=== PATIENT | male | born 1995 | race African-American/Black ===

== ENCOUNTER 2018-01-27 17:21 | Emergency (ER) | payer OTHER ==
[~2018-01-27] VITALS: Ht 175.3 cm; Wt 63.5 kg
[2018-01-27 17:21] VITALS: BP 113/54
[2018-01-27] MEDS ORDERED: FLAGYL500 MG PO (17:33)
== END 2018-01-27 17:47 | disposition home or self-care (01) ==
LOC: ER 17:21
DX: A64 Unspecified sexually transmitted disease (principal); R36.9 Urethral discharge, unspecified

== ENCOUNTER 2018-11-27 01:27 | Emergency (ER) | payer OTHER ==
[~2018-11-27] VITALS: Ht 172.7 cm; Wt 63.5 kg
[~2018-11-27 01:27] MED LIST: FLAGYL500 MG PO
[2018-11-27 02:49] VITALS: BP 138/100
== END 2018-11-27 02:53 | disposition home or self-care (01) ==
LOC: ER 01:27
DX: S60.312A Abrasion of left thumb, initial encounter (principal); W22.8XXA Striking against or struck by other objects, initial encounter; Y93.89 Activity, other specified; Y92.89 Other specified places as the place of occurrence of the external cause; Y99.8 Other external cause status

== ENCOUNTER 2021-04-01 17:38 | Emergency (ER) | payer OTHER ==
[~2021-04-01] VITALS: Ht 172.7 cm; Wt 63.5 kg
[2021-04-01 17:42] VITALS: BP 121/81
[2021-04-01] MEDS ORDERED: PROAIR HFA8.5 GM INH (18:43)
== END 2021-04-01 21:41 | disposition home or self-care (01) ==
LOC: ER 17:38
PROVIDERS: Physician Assistant
DX: Z20.822 Contact with and (suspected) exposure to COVID-19 (principal); R06.02 Shortness of breath; F17.210 Nicotine dependence, cigarettes, uncomplicated